=== PATIENT | female | born 1985 | race Caucasian/White ===

== ENCOUNTER 2017-07-08 17:15 | Emergency (ER) | payer SELFPAY ==
[~2017-07-08] VITALS: Ht 182.9 cm; Wt 100.0 kg
[~2017-07-08 17:15] MED LIST: CIPROFLOXACN500 MG PO; CORTAID11 EX; HYDROXYZ HCL25 MG PO; LORTAB 5/3255 MG PO; LORTAB 7.5-3251 TAB PO; MOTRIN800 MG PO; NAPROXEN500 MG OR; NO MEDS; PENICILLN VK500 MG PO; PRENATA3 PO; TRAMADOL HCL50 MG OR
[2017-07-08] MEDS ORDERED: AMOXICILLIN500 MG PO (19:21)
[2017-07-08 19:30] VITALS: BP 119/74
== END 2017-07-08 19:30 | disposition home or self-care (01) | DRG 153 ==
LOC: ED 17:15
DX: J02.9 Acute pharyngitis, unspecified (principal)

== ENCOUNTER 2018-01-21 09:32 | Emergency (ER) | payer OTHER ==
[~2018-01-21] VITALS: Ht 182.9 cm; Wt 97.0 kg
[~2018-01-21 09:32] MED LIST changes: +AMOXICILLIN500 MG PO
[2018-01-21 10:49] LABS: INFLUENZA A NONE DETECTED (NONE DETECT); INFLUENZA B NONE DETECTED (NONE DETECT)
[2018-01-21] MEDS ORDERED: TAM75CAP PO (11:03)
[2018-01-21 11:10] VITALS: BP 135/84
== END 2018-01-21 11:10 | disposition home or self-care (01) | DRG 153 ==
LOC: ED 09:32
PROVIDERS: Family Medicine
DX: J11.1 Influenza due to unidentified influenza virus with other respiratory manifestations (principal); R50.9 Fever, unspecified; R05 Cough; H92.02 Otalgia, left ear; F17.200 Nicotine dependence, unspecified, uncomplicated

== ENCOUNTER 2021-02-05 11:48 | Emergency (ER) | payer SELFPAY ==
[~2021-02-05] VITALS: Ht 182.9 cm; Wt 108.0 kg
[~2021-02-05 11:48] MED LIST changes: +TAM75CAP PO
[2021-02-05] MEDS ORDERED: CLEOCIN300 MG PO (12:59)
[2021-02-05] MEDS ORDERED: HYDROCO/APAP1 TA9 PO (12:59)
[2021-02-05 13:25] VITALS: BP 132/67
== END 2021-02-05 13:25 | disposition home or self-care (01) | DRG 158 ==
LOC: ED 11:48
DX: K04.7 Periapical abscess without sinus (principal); K02.9 Dental caries, unspecified; M84.68XA Pathological fracture in other disease, other site, initial encounter for fracture; F17.200 Nicotine dependence, unspecified, uncomplicated

== ENCOUNTER 2022-04-18 19:29 | Emergency (ER) | payer SELFPAY ==
[~2022-04-18] VITALS: Ht 175.3 cm; Wt 104.0 kg
[~2022-04-18 19:29] MED LIST changes: +CLEOCIN300 MG PO; +HYDROCO/APAP1 TA9 PO
[2022-04-18 20:01] VITALS: BP 137/85
[2022-04-18] MEDS ORDERED: AMOXICILLIN500 MG PO (20:09)
== END 2022-04-18 21:34 | disposition home or self-care (01) | DRG 159 ==
LOC: ED 19:29
DX: K04.7 Periapical abscess without sinus (principal); K02.9 Dental caries, unspecified; F17.200 Nicotine dependence, unspecified, uncomplicated